=== PATIENT | female | born 1965 | race Caucasian/White ===

== ENCOUNTER 2016-08-02 12:23 | Emergency (ER) | payer OTHER ==
[2016-08-02 12:33] VITALS: BP 135/84; PULSE 82; RESP 16; TEMP 98.2; O2SAT 98
[2016-08-02 13:00] LABS: COLOR YELLOW; LEUKOCYTE ESTERASE,URINE NEGATIVE (NEGATIVE); NITRITE,URINE NEGATIVE (NEGATIVE)
[2016-08-02] MEDS ORDERED: IBUPROFEN 200 MG TAB PO ONE (13:19)
--- NOTE | 2016-08-02 13:59 | DX ---
Thoracolumbar Spine, 3 views History: Pain, fall last night, history of ankylosing spondylitis Comparison: Lateral chest x-ray October 06, 2012 Findings: There is stable mild compressions of T7, T8, T9 and T10. No new compressions are identified . There is no paraspinal stripe widening. There is small anterior degenerative spurring present betwe en T6 and T12. Impression: Nothing acute identified.
--- NOTE | 2016-08-02 14:02 | UCPHY ---
H & P Time Seen by Provider: 08/02/16 13:27 Patient Type: Established HPI/ROS: This patient presents with a chief complaint of left-sided back pain which began shortly before arrival when she fell and struck her posterior chest wall on the edge of a step. She localizes her pain to the mid left posterior chest is noticed that it is worse with deep breathing and movement. She does not actually feel short of breath. She denies any midline pain in the neck or back. Smoking Status: Former smoker Physical Exam: This is a well-developed well-nourished female who seems to be quite uncomfortable when moving. Examination of the back reveals no midline tenderness. There is tenderness to the left mid chest in the region just inferior to the scapula. Breath sounds are clear and symmetric. Constitutional: Initial Vital Signs Temperature (C) 36.8 C 08/02/16 12:28 Heart Rate 82 08/02/16 12:28 Respiratory Rate 16 08/02/16 12:28 Blood Pressure 135/84 H 08/02/16 12:28 O2 Sat (%) 98 08/02/16 12:28 O2 Delivery Mode Room Air Allergies/Adverse Reactions: morphine Allergy (Intermediate, Verified 08/02/16 12:34) Rash Opioids - Morphine Analogues Allergy (Intermediate, Verified 08/02/16 12:34) Rash Sulfa (Sulfonamide Antibiotics) Allergy (Intermediate, Verified 08/02/16 12:34) Rash ETHER Allergy (Severe, Uncoded 08/02/16 12:34) ANAPHYLACTIC Home Medications: Medication Instructions Recorded Zantac 07/17/13 Duloxetine HCl 03/14/15 Linzess 03/14/15 Benadryl 05/18/16 Clonazepam 05/18/16 METRONIDAZOLE 05/18/16 celeCOXIB 05/18/16 valACYclovir 05/18/16 Green Tea 08/02/16 Ibuprofen 08/02/16 Remicade Inj 100 mg (*) 08/02/16 Turmeric 08/02/16 Vitamin D3 08/02/16 Medical Decision Making - Diagnostics Imaging: X-rays of the spine in the chest are normal. - Data Points Laboratory Results: 08/02/16 12:50 Urine Color YELLOW Urine Appearance CLEAR Urine pH 5.0 (5.0-7.5) Ur Specific [place] 1.015 (1.002-1.030) Urine Protein NEGATIVE (NEGATIVE) Urine Ketones NEGATIVE (NEGATIVE) Urine Blood NEGATIVE (NEGATIVE) Urine Nitrate NEGATIVE (NEGATIVE) Urine Bilirubin NEGATIVE (NEGATIVE) Urine Urobilinogen 0.2 EU (0.2-1.0) Ur Leukocyte Esterase NEGATIVE (NEGATIVE) Urine Glucose NEGATIVE (NEGATIVE) Medications Given: Discontinued Medications Ibuprofen (Motrin) 600 mg PO EDNOW ONE Stop: 08/02/16 13:20 Last Admin: 08/02/16 13:36 Dose: 600 mg Departure - Departure Disposition: Home, Routine, Self-Care Clinical Impression: Contusion of rib on left side Qualifiers: Encounter type: initial encounter Qualifier Code: (S20.212A) Contusion of left front wall of thorax, initial encounter Condition: Good Instructions: Contusion in Adults (ED) Additional Instructions: This injury probably will take 3-4 weeks to resolve completely. If you continue to have problems after this you should be re-evaluated. If at any time if symptoms worsen or you become short of breath you should be seen right away. Apply ice to the area of injury for 20 minutes every 2 hours for 3 days following your injury. After 3 days (72 hours) it is safe to apply heat frequently throughout the day and I would recommend you're doing so. However if ice feels better it is okay to do this. Elevate the area of the injury as much as possible for the next 2 or 3 days or longer if you have a serious injury. If you have been told that it is safe to use the injured extremity do so in a limited fashion for the first 2-3 days. Afterwards left pain be your guide. Adult Pain & Fever Control: We recommend Acetaminophen (Tylenol) and Ibuprofen (Motrin, Advil) for pain and fever control. When fever is high or pain severe, both drugs can be used at the same time, but at different intervals. Please note the time differences. Your dose is: Acetaminophen [650]mg every 4 to 6 hours ibuprofen [600]mg every [6] hours with food OR naproxen Sodium (Aleve) [440]mg every 12 hours. Note: do not take Acetaminophen with Hydrocodone (Vicodin, Lortab) or Oxycodone (Percocet). These medications also contain Acetaminophen. No more than 3000 mg of Acetaminophen should be taken in 24 hours (for an adult) . The maximal dose of ibuprofen that it is safe in a 24-hour period is 2400 mg. You may take 400 mg every 4 hours, 600 mg every 6 hours or 800 mg every 8 hours safely. - PQRS PQRS Measurement: Not applicable
--- NOTE | 2016-08-02 14:20 | DX ---
Chest, PA and Lateral History: Trauma to left posterior chest, fall last night Comparison: October 06, 2012 Findings: Lungs are clear, without pneumothorax, pleural effusion, pulmonary contusion, mediastinal w idening or cardiomegaly. No left rib or scapula fracture is identified. Mild thoracic compressions of T7-T10 are stable. No new compressions have developed. There is no paraspinal stripe widening. Thora cic disk bases maintain normal height. Impression: No source for pain identified.
== END 2016-08-02 14:10 | disposition home or self-care (01) ==
LOC: CED 12:23
DX: S20.212A Contusion of left front wall of thorax, initial encounter (principal); W10.8XXA Fall (on) (from) other stairs and steps, initial encounter; Y92.019 Unspecified place in single-family (private) house as the place of occurrence of the external cause; Z87.891 Personal history of nicotine dependence
CPT/HCPCS: 71020-PO; 72080-PO; 81003-PO; 99214-PO; G0463-PO

== ENCOUNTER 2016-09-12 16:39 | Emergency (ER) | payer OTHER ==
[2016-09-12 17:00] VITALS: BP 143/89; PULSE 82; RESP 18; TEMP 98.6; O2SAT 96
[2016-09-12] MEDS ORDERED: NS 1,000 ML IV ONE (17:45)
[2016-09-12 17:50] LABS: % IMMATURE GRANULYOCYTES 0.2 % (0.0-1.1); ABSOLUTE IMMATURE GRANULOCYTES 0.02 10^3/uL (0.00-0.10); ADD DIFF? NO; ADD MORPH? NO; ADD SCAN? NO; ATYPICAL LYMPHOCYTE FLAG 10 (0-99); FRAGMENT RBC FLAG 0 (0-99); HEMATOCRIT 41.3 % (38.0-47.0); HEMOGLOBIN 14.1 g/dL (12.6-16.3); LEFT SHIFT FLG 0 (0-99); LIPEMIA HEMOLYSIS FLAG 90 (0-99); MEAN CELL HEMOGLOBIN CONCENTR. 34.1 g/dL (32.4-36.7); MEAN CELL VOLUME 82.1 fL (81.5-99.8); MEAN PLATELET VOLUME 10.2 fL (8.7-11.7); PLATELET CLUMPS FLAG 0 (0-99); PLATELET COUNT 326 10^3/uL (150-400); RED BLOOD CELL COUNT 5.03 10^6/uL (4.18-5.33); RED CELL DISTRIBUTION WIDTH 13.3 % (11.5-15.2)
[2016-09-12 18:09] LABS: COLOR YELLOW; LEUKOCYTE ESTERASE,URINE NEGATIVE (NEGATIVE); NITRITE,URINE NEGATIVE (NEGATIVE)
[2016-09-12 18:12] LABS: ALBUMIN 3.7 g/dL (3.5-5.0); BILIRUBIN,TOTAL 0.5 mg/dL (0.1-1.4); BILIRUBIN-CONJUGATED 0.3 mg/dL (0.0-0.5); BILIRUBIN-UNCONJUGATED 0.2 mg/dL (0.0-1.1); TOTAL PROTEIN 6.7 g/dL (6.3-8.2)
--- NOTE | 2016-09-12 18:25 | UCPHY ---
H & P Patient Type: Established Chief Complaint Nursing Narrative: abd cramping with v/d for 10 days, states left pt 10 days ago and has been dealing with intense anxiety. denies localized abd pain or fevers. +decreased appetite and fatigue Time Seen by Provider: 09/12/16 17:45 HPI/ROS: This patient complains of vomiting and diarrhea for the past 10 days intermittently. This is occurring in the setting of a grief response from her leaving. The separation is new and started 10 days prior to arrival. She reports that with food she developed the symptoms of nausea plus or minus vomiting and diarrhea described as loose watery stool. She has mild abdominal cramping. She also has significant anxiety and has had some insomnia over the past 10 days. ROS: No fevers or chills. No other constitutional symptoms. HEENT: No URI symptoms. Pulmonary: No cough. No shortness of breath. Cardiovascular: No lightheadedness. GI: No bloody stools or dark tarry stools. No hematemesis. : No complaints. 10 point ROS is otherwise negative. Source: Patient Exam Limitations: No limitations - Personal History Tetanus Vaccine Date: within 10 years - Medical/Surgical History Hx Asthma: No Hx Chronic Respiratory Disease: No Hx Diabetes: No Hx Cardiac Disease: No Hx Renal Disease: No Hx Cirrhosis: No Hx Alcoholism: No Hx HIV/AIDS: No Hx Splenectomy or Spleen Trauma: No Other PMH: colitis, arthritis, Ankylosing spondylitis, tonsilectomy. orthosurgery, sjorgrens - Family History Significant Family History: No pertinent family hx - Social History Smoking Status: Former smoker Alcohol Use: Occasionally (None over the past 10 days) Drug Use: None Additional Social History: She is accompanied by her young adult daughter - Physical Exam Exam: Normal vital signs exception of mild hypertension 143/89 General Appearance: Alert, no distress. Eyes: Pupils equal and round no pallor or injection. ENT, Mouth: Mucous membranes moist. Respiratory: There are no retractions, lungs are clear to auscultation. Cardiovascular: Regular rate and rhythm. Gastrointestinal: Abdomen is soft and nontender, no masses, bowel sounds normal. Neurological: Alert with no focal deficits Skin: Warm and dry, no rashes. Musculoskeletal: Neck is supple nontender. Extremities are symmetrical, full range of motion. Psychiatric: Patient is intermittently tearful. No pressured speech. No psychotic symptoms. DIFFERENTIAL DIAGNOSIS: After history and physical exam differential diagnosis was considered for functional diarrhea and vomiting, viral illness, grief response anxiety and insomnia Constitutional: Initial Vital Signs Temperature (C) 37.0 C 09/12/16 16:57 Heart Rate 82 09/12/16 16:57 Respiratory Rate 18 09/12/16 16:57 Blood Pressure 143/89 H 09/12/16 16:57 O2 Sat (%) 96 09/12/16 16:57 O2 Delivery Mode Room Air Allergies/Adverse Reactions: morphine Allergy (Intermediate, Verified 09/12/16 16:56) Rash Opioids - Morphine Analogues Allergy (Intermediate, Verified 09/12/16 16:56) Rash Sulfa (Sulfonamide Antibiotics) Allergy (Intermediate, Verified 09/12/16 16:56) Rash ETHER Allergy (Severe, Uncoded 09/12/16 16:56) ANAPHYLACTIC Home Medications: Medication Instructions Recorded Zantac 07/17/13 Duloxetine HCl 03/14/15 Linzess 03/14/15 Benadryl 05/18/16 Clonazepam 05/18/16 METRONIDAZOLE 05/18/16 celeCOXIB 05/18/16 valACYclovir 05/18/16 Green Tea 08/02/16 Ibuprofen 08/02/16 Remicade Inj 100 mg (*) 08/02/16 Turmeric 08/02/16 Vitamin D3 08/02/16 Ondansetron Odt [Zofran Odt] 4 - 8 mg PO Q4PRN PRN #4 tab 09/12/16 Zaleplon [Sonata] 10 mg PO HS #12 capsule 09/12/16 clonazePAM [Klonopin (*)] 0.5 - 1 mg PO TID PRN #15 tab 09/12/16 Medical Decision Making ED Course/Re-evaluation: IV normal saline bolus, Zofran with resolution of nausea I counseled patient regarding grief Review of her labs reveals normal CBC, chemistries and urinalysis. She has a benign belly exam. - Data Points Laboratory Results: Laboratory Results 09/12/16 17:15 09/12/16 09/12/16 09/12/16 18:02 17:15 17:15 WBC RBC Hgb Hct MCV MCH MCHC RDW Plt Count MPV Neut % (Auto) Lymph % (Auto) [place] % (Auto) Eos % (Auto) Baso % (Auto) Nucleat RBC Rel Count Absolute Neuts (auto) Absolute Lymphs (auto) Absolute Monos (auto) Absolute Eos (auto) Absolute Basos (auto) Absolute Nucleated RBC Immature Gran % Immature Gran # Total Bilirubin 0.5 mg/dL mg/dL (0.1-1.4) Conjugated Bilirubin 0.3 mg/dL mg/dL (0.0-0.5) Unconjugated Bilirubin 0.2 mg/dL mg/dL (0.0-1.1) AST 16 IU/L IU/L (14-46) ALT 31 IU/L IU/L (9-52) Alkaline Phosphatase 57 IU/L IU/L (38-126) Total Protein 6.7 g/dL g/dL (6.3-8.2) Albumin 3.7 g/dL g/dL (3.5-5.0) Beta HCG, Qual NEGATIVE Urine Color YELLOW Urine Appearance CLEAR Urine pH 5.0 (5.0-7.5) Ur Specific [place] 1.015 (1.002-1.030) Urine Protein NEGATIVE (NEGATIVE) Urine Ketones NEGATIVE (NEGATIVE) Urine Blood NEGATIVE (NEGATIVE) Urine Nitrate NEGATIVE (NEGATIVE) Urine Bilirubin NEGATIVE (NEGATIVE) Urine Urobilinogen 0.2 EU EU (0.2-1.0) Ur Leukocyte Esterase NEGATIVE (NEGATIVE) Urine Glucose NEGATIVE (NEGATIVE) 09/12/16 17:15 WBC 9.09 10^3/uL 10^3/uL (3.80-9.50) RBC 5.03 10^6/uL 10^6/uL (4.18-5.33) Hgb 14.1 g/dL g/dL (12.6-16.3) Hct 41.3 % % (38.0-47.0) MCV 82.1 fL fL (81.5-99.8) MCH 28.0 pg pg (27.9-34.1) MCHC 34.1 g/dL g/dL (32.4-36.7) RDW 13.3 % % (11.5-15.2) Plt Count 326 10^3/uL 10^3/uL (150-400) MPV 10.2 fL fL (8.7-11.7) Neut % (Auto) 55.8 % % (39.3-74.2) Lymph % (Auto) 36.2 % % (15.0-45.0) [place] % (Auto) 6.7 % % (4.5-13.0) Eos % (Auto) 0.7 % % (0.6-7.6) Baso % (Auto) 0.4 % % (0.3-1.7) Nucleat RBC Rel Count 0.0 % % (0.0-0.2) Absolute Neuts (auto) 5.07 10^3/uL 10^3/uL (1.70-6.50) Absolute Lymphs (auto) 3.29 10^3/uL H 10^3/uL (1.00-3.00) Absolute Monos (auto) 0.61 10^3/uL 10^3/uL (0.30-0.80) Absolute Eos (auto) 0.06 10^3/uL 10^3/uL (0.03-0.40) Absolute Basos (auto) 0.04 10^3/uL 10^3/uL (0.02-0.10) Absolute Nucleated RBC 0.00 10^3/uL 10^3/uL (0-0.01) Immature Gran % 0.2 % % (0.0-1.1) Immature Gran # 0.02 10^3/uL 10^3/uL (0.00-0.10) Total Bilirubin Conjugated Bilirubin Unconjugated Bilirubin AST ALT Alkaline Phosphatase Total Protein Albumin Beta HCG, Qual Urine Color Urine Appearance Urine pH Ur Specific [place] Urine Protein Urine Ketones Urine Blood Urine Nitrate Urine Bilirubin Urine Urobilinogen Ur Leukocyte Esterase Urine Glucose Medications Given: Discontinued Medications Sodium Chloride (Ns) 1,000 mls @ 0 mls/hr IV ONCE ONE PRN Reason: Wide Open Stop: 09/12/16 17:46 Last Admin: 09/12/16 18:00 Dose: 1,000 mls Departure - Departure Disposition: Home, Routine, Self-Care Clinical Impression: Vomiting and diarrhea, Grief reaction Insomnia Qualifiers: Insomnia type: unspecified Qualified Code(s): G47.00 - Insomnia, unspecified Condition: Good Instructions: Grief and Loss (ED), Gastroenteritis (ED), Insomnia (ED) Additional Instructions: Diagnoses: 1. Vomiting and diarrhea 2. Grief reaction 3. Insomnia Plan: Imodium [id number] for diarrhea if needed.. Stop your Lizness until the symptoms resolve Light diet to feel improved Zofran for nausea or vomiting if needed Sonata if needed for sleep. Klonopin if needed for anxiety. Do not take Klonopin at the same time the take the sonata. Follow up with primary care physician for any ongoing symptoms. Also, consider follow-up with [facility] therapist if your choice. [facility] is [phone] Return for any significant worsening despite the treatment Referrals: NONE *PRIMARY CARE P,. [Primary Care Provider] - As per Instructions Prescriptions: clonazePAM [Klonopin (*)] 0.5 - 1 mg PO TID PRN #15 tab PRN Reason: Anxiety Ondansetron Odt [Zofran Odt] 4 - 8 mg PO Q4PRN PRN #4 tab PRN Reason: Vomiting Zaleplon [Sonata] 10 mg PO HS #12 capsule - PQRS PQRS Measurement: NA
== END 2016-09-12 19:21 | disposition home or self-care (01) ==
LOC: CED 16:39
DX: R11.10 Vomiting, unspecified (principal); R19.7 Diarrhea, unspecified; G47.00 Insomnia, unspecified; F43.20 Adjustment disorder, unspecified; Z87.891 Personal history of nicotine dependence
CPT/HCPCS: 80076-PO; 81003-PO; 84703-PO; 85025-PO; 96360-PO; 99214-PO; G0463-PO

== ENCOUNTER 2016-09-13 15:28 | Emergency (ER) | payer OTHER ==
[2016-09-13 15:47] VITALS: BP 106/70; PULSE 88; RESP 16; TEMP 98.6; O2SAT 98
--- NOTE | 2016-09-13 17:10 | UCPHY ---
H & P Time Seen by Provider: 09/13/16 16:24 Patient Type: Established HPI/ROS: CHIEF COMPLAINT: Right foot injury HISTORY OF PRESENT ILLNESS: 50-year-old female presents to urgent care by private vehicle with injury to the right foot. The patient had a heavy cement step fall onto her right foot and ankle. The incident happened at 8 o'clock this morning. She initially felt fine was able to walk around normally although with some slight pain. She states now it is quite swollen and bruised and is having trouble bearing weight because of the pain. Denies any other trauma or injury. She believes her tetanus shot is current. ROS: Denies numbness or tingling in her toes, pain in her right calf or knee. Past Medical/Surgical History: Sjogren's, ankylosing spondylitis, tonsillectomy Social History: and lives in [place], she works as a tomasz. Smoking Status: Former smoker Physical Exam: Examination the right foot and ankle revealed diffuse swelling and ecchymosis to the dorsal aspect of her right foot. There is a superficial abrasion to the anterior aspect of the right knee. Full range of motion of the right ankle. Calf is nontender. Normal sensation to light touch with normal 2 point discrimination. No redness or warmth or signs of cellulitis. Unable to bear weight secondary to pain. Difficult to assess ligament stability given her swelling and pain. Constitutional: Initial Vital Signs Temperature (C) 37 C 09/13/16 15:44 Heart Rate 88 09/13/16 15:44 Respiratory Rate 16 09/13/16 15:44 Blood Pressure 106/70 09/13/16 15:44 O2 Sat (%) 98 09/13/16 15:44 O2 Delivery Mode Room Air Allergies/Adverse Reactions: morphine Allergy (Intermediate, Verified 09/13/16 15:47) Rash Opioids - Morphine Analogues Allergy (Intermediate, Verified 09/13/16 15:47) Rash Sulfa (Sulfonamide Antibiotics) Allergy (Intermediate, Verified 09/13/16 15:47) Rash ETHER Allergy (Severe, Uncoded 09/13/16 15:47) ANAPHYLACTIC Home Medications: Medication Instructions Recorded Zantac 07/17/13 Duloxetine HCl 03/14/15 Linzess 03/14/15 Benadryl 05/18/16 Clonazepam 05/18/16 celeCOXIB 05/18/16 valACYclovir 05/18/16 Green Tea 08/02/16 Ibuprofen 08/02/16 Remicade Inj 100 mg (*) 08/02/16 Turmeric 08/02/16 Vitamin D3 08/02/16 Ondansetron Odt [Zofran Odt] 4 - 8 mg PO Q4PRN PRN #4 tab 09/12/16 Zaleplon [Sonata] 10 mg PO HS #12 capsule 09/12/16 clonazePAM [Klonopin (*)] 0.5 - 1 mg PO TID PRN #15 tab 09/12/16 MDM/Departure - MDM Diagnostics: X-rays of the right foot reveal no fractures. This is reviewed by myself the PAC system as well as by the radiologist. Procedures: Patient was placed in a postop shoe and examined post application in good placement with normal BRAID FOLDER. ED Course/Re-evaluation: 50-year-old female presents with right foot and ankle injury. X-rays reveal no fractures. She was placed in a postop shoe and given orthopedic referral. She believes her tetanus shot is current. She has her own crutches at home. - Depart Disposition: Home, Routine, Self-Care Clinical Impression: Contusion of right foot Qualifiers: Encounter type: initial encounter Qualified Code(s): S90.31XA - Contusion of right foot, initial encounter Abrasion of right foot Qualifiers: Encounter type: initial encounter Qualified Code(s): S90.811A - Abrasion, right foot, initial encounter Condition: Good Instructions: Contusion in Adults (ED), Abrasion (ED), Acute Wounds (ED) Additional Instructions: Postop shoe for comfort and support. Weightbear as tolerated, use crutches if needed. Ibuprofen 600 mg every 8 hours as needed for pain. Follow up with orthopedic surgeon in 1 week to recheck. Return if you notice any signs or symptoms of infection associated with the abrasion such as redness, swelling, increased pain, fever, purulent drainage. Referrals: Vincent Carranza MD [Medical Doctor] - 5-7 days, call for appt. ([facility] orthopedic surgeon you have seen in the past) - PQRS PQRS Measurement: Not applicable
== END 2016-09-13 17:29 | disposition home or self-care (01) ==
LOC: CED 15:28
DX: S90.31XA Contusion of right foot, initial encounter (principal); S90.811A Abrasion, right foot, initial encounter; Z87.891 Personal history of nicotine dependence; W20.8XXA Other cause of strike by thrown, projected or falling object, initial encounter
CPT/HCPCS: 73630-PO; 99214-PO; G0463-PO

== ENCOUNTER → 2017-03-23 | Outpatient (CLI) | payer OTHER | LOC: CIMAGING 08:33 | PROVIDERS: ATTEND Physician Assistant | DX: R10.9 Unspecified abdominal pain (principal) | CPT/HCPCS: 76700-PO ==

== ENCOUNTER → 2017-06-15 | Outpatient (CLI) | payer OTHER | LOC: CIMAGING 14:49 | PROVIDERS: ATTEND Family Medicine | DX: Z12.31 Encounter for screening mammogram for malignant neoplasm of breast (principal) | CPT/HCPCS: G0202 ==

== ENCOUNTER → 2017-10-13 | Outpatient (CLI) | payer OTHER | LOC: CIMAGING 10:01 | PROVIDERS: ATTEND Family Medicine | DX: M54.5 Low back pain (principal) | CPT/HCPCS: 72100-PO ==

== ENCOUNTER → 2018-01-06 | Outpatient (CLI) | payer OTHER | LOC: BMCIMAGING 08:34 | PROVIDERS: ATTEND Physician Assistant | DX: M25.562 Pain in left knee (principal) ==

== ENCOUNTER → 2018-04-07 | Outpatient (CLI) | payer OTHER | LOC: CIMAGING 07:20 | PROVIDERS: ATTEND Obstetrics & Gynecology | DX: N83.202 Unspecified ovarian cyst, left side (principal); D25.9 Leiomyoma of uterus, unspecified | CPT/HCPCS: 76856-PO ==

== ENCOUNTER 2018-06-14 21:07 | Emergency (ER) | payer OTHER ==
--- NOTE | 2018-06-14 22:13 | EDPHY ---
H & P Time Seen by Provider: 06/14/18 21:16 HPI/ROS: CHIEF COMPLAINT: Abdominal pain HISTORY OF PRESENT ILLNESS: Patient presents with abdominal pain. She states she felt fine this evening but approximately 20 min after eating dinner at 6:15 a.m. she had the "worst pain ever". It lasted for approximately 1 hr. It was generalized and crampy. She had nausea but no vomiting, she states she did take a Zofran at home. She did have a BM and eventually the pain decreased. She denies blood in her stool, focal pain, fever. She states now she has some epigastric pain but not as bad as earlier, "normal pain". She also describes cold sweats. Patient tells me that she has had significant constipation problems for over 1 year and has been seen by a physician licensed investment sales assistant, Nanda Bryant with [facility]. She has had extensive workup including endoscopies and has tried several medications but her symptoms have gotten progressively worse. She also tells me that since the age of 11 she has had a GI issues. Tonight's pain was worse than normal however she was encouraged to come to the emergency department by her daughter who is a nurse. Contents of 10 point review of systems otherwise negative except for what is mentioned in HPI. General Appearance: Alert, no distress. Vital signs normal. Eyes: Pupils equal and round no icterus Respiratory: No respiratory distress, lungs clear to auscultation bilaterally Cardiac: Regular rate and rhythm no murmurs rubs or gallops. Normal femoral pulses. Abdomen: Soft, mild diffuse tenderness, normal bowel sounds. No rebound or guarding. No distention. No CVA tenderness. Neurological: Awake, alert, no focal deficits. Skin: Warm and dry, no rashes. Musculoskeletal: Neck is supple nontender. Extremities are symmetrical, full range of motion, no edema. Psychiatric: Patient is oriented X 3, there is no agitation. Medical/surgical history: Colitis, arthritis, ankylosing spondylitis, Sjogren' s syndrome. Surgeries include tonsillectomy, ortho surgery to right ankle, knee and elbow. 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 Gynecologic procedures at ages 6 and 8. Laparoscopic surgery for infertility as adult. Social history: Nonsmoker. Smoking Status: Former smoker Constitutional: Initial Vital Signs Temperature (C) 36.4 C 06/14/18 21:16 Heart Rate 65 06/14/18 21:16 Respiratory Rate 16 06/14/18 21:16 Blood Pressure 114/73 06/14/18 21:16 O2 Sat (%) 97 06/14/18 21:16 O2 Delivery Mode Room Air Allergies/Adverse Reactions: morphine Allergy (Intermediate, Verified 09/13/16 15:47) Rash Opioids - Morphine Analogues Allergy (Intermediate, Verified 09/13/16 15:47) Rash Sulfa (Sulfonamide Antibiotics) Allergy (Intermediate, Verified 09/13/16 15:47) Rash ETHER Allergy (Severe, Uncoded 09/13/16 15:47) ANAPHYLACTIC Home Medications: Medication Instructions Recorded Zantac 07/17/13 Duloxetine HCl 03/14/15 Benadryl 05/18/16 Clonazepam 05/18/16 celeCOXIB 05/18/16 valACYclovir 05/18/16 Green Tea 08/02/16 Ibuprofen 08/02/16 Remicade Inj 100 mg (*) 08/02/16 Turmeric 08/02/16 Vitamin D3 08/02/16 Ondansetron Odt [Zofran Odt] 4 - 8 mg PO Q4PRN PRN #4 tab 09/12/16 clonazePAM [Klonopin (*)] 0.5 - 1 mg PO TID PRN #15 tab 09/12/16 Medical Decision Making Differential Diagnosis: Differential diagnosis includes but is not limited to diverticulitis, cholecystitis, pancreatitis, bowel obstruction, perforation, colitis. After evaluation patient with benign abdominal exam and normal vital signs and very low suspicious for acute abdomen. I had long discussion with patient regarding her extensive GI history and she feels, as do I, that no additional testing is necessary today. She understands her condition well and has appropriate GI follow-up this week as needed. She also understands indications to return to the emergency department if symptoms worsen or change in any significant way. Stable for discharge. Departure - Departure Clinical Impression: Abdominal pain Qualifiers: Abdominal location: generalized Qualified Code(s): R10.84 - Generalized abdominal pain Condition: Good Instructions: Irritable Bowel Syndrome (ED), Constipation (ED), Abdominal Pain (ED) Additional Instructions: Continue your medications at home as prescribed and follow up with her GI doctor tomorrow as discussed. If your condition worsens or you develop new concerning symptoms you are encouraged to return to the emergency department. Referrals: Lilly Sepulveda MD [Primary Care Provider] - As per Instructions
[2018-06-14 22:17] VITALS: BP 101/65
== END 2018-06-14 22:29 | disposition home or self-care (01) ==
LOC: CED 21:07
DX: R10.84 Generalized abdominal pain (principal); M35.00 Sjogren syndrome, unspecified; Z88.2 Allergy status to sulfonamides

== ENCOUNTER → 2018-06-17 | Outpatient (CLI) | payer OTHER | LOC: CIMAGING 07:12 | PROVIDERS: ATTEND Family Medicine | DX: Z12.31 Encounter for screening mammogram for malignant neoplasm of breast (principal) ==

== ENCOUNTER → 2018-09-03 | Outpatient (CLI) | payer OTHER | LOC: BMCIMAGING 14:14 | PROVIDERS: ATTEND Physician Assistant | DX: M18.11 Unilateral primary osteoarthritis of first carpometacarpal joint, right hand (principal) ==

== ENCOUNTER → 2018-10-13 | Outpatient (CLI) | payer OTHER ==
[~2018-10-13] MED LIST: GADOBUTROL 10 ML VIAL IVP ONE
== END ==
LOC: FIMAGING 16:37
PROVIDERS: ATTEND Psychiatry & Neurology Neurology
DX: R20.0 Anesthesia of skin (principal)
CPT/HCPCS: A9585